=== PATIENT | female | born 1935 | race Caucasian/White ===

== ENCOUNTER 2021-03-29 13:58 | Inpatient (IN) ==
[2021-03-30] MEDS: Gabapentin 300 MG CAPSULE PO SCH ×2 (01:47→20:34)
[2021-03-30 07:07] LABS: Basophils # 0.1 K/mcL (0.0-0.2); Basophils % 0.5 %; Eosinophils # 0.4 K/mcL (0.0-0.6); Eosinophils % 3.8 %; Hematocrit 28.2 % (35.3-44.9); Hemoglobin 8.8 g/dL (11.5-15.4); Lymphocytes # 1.7 K/mcL (0.6-4.6); Lymphocytes % 18.7 %; Mean Corpuscular HGB Conc 31.2 g/dL (31.6-35.5); Mean Corpuscular Hemoglobin 27.8 pg (28.0-33.3); Mean Corpuscular Volume 89.2 fL (83.0-100.0); Mean Platelet Volume 9.4 fL (9.4-12.4); Monocytes # 0.8 K/mcL (0.0-1.3); Monocytes % 8.6 %; Neutrophils # 6.2 K/mcL (1.6-8.9); Nucleated Red Blood Cells 0.2 /100 WBC (0); Platelet Count 232 K/mcL (140-400); Red Blood Count 3.16 M/mcL (3.82-4.97); Red Cell Distribution Width 14.5 % (11.5-14.5); Segmented Neutrophils % 67.4 %; White Blood Count 9.2 K/mcL (4.3-11.1)
[2021-03-30 07:25] LABS: BUN/Creatinine Ratio 15 (6-26); Blood Urea Nitrogen 13 mg/dL (8-23); Calcium 8.3 mg/dL (8.6-10.3); Carbon Dioxide 30 mEq/L (23-29); Chloride 107 mEq/L (98-107); Glucose 95 mg/dL (70-105); Osmolality,Calculated 292 (280-300); Potassium 3.7 mEq/L (3.5-5.1); Sodium 141 mEq/L (136-145); eGFR For African Americans > 60 (> 60); eGFR For Non-African Americans > 60 (> 60)
[2021-03-30] MEDS ORDERED: POTASSIUM CHLORIDE 10 MEQ/100 ML IVPB SCH (09:00)
[2021-03-30] MEDS: Cholecalciferol (D-3) 1,000 UNIT (25MCG) TABLET PO SCH (09:47)
[2021-03-30] MEDS: Furosemide 20 MG TABLET PO SCH (09:48)
[2021-03-30] MEDS: Loratadine 10 MG TABLET PO SCH (09:48)
[2021-03-30] MEDS: amLODIPine 5 MG TABLET PO SCH (09:48)
[2021-03-30] MEDS: FLUTICASONE IH SCH (09:49)
[2021-03-30] MEDS: MEMANTINE HCL 21 MG PO SCH (09:49)
[2021-03-30] MEDS: VILANTEROL IH SCH (09:49)
[2021-03-30] MEDS: Albuterol 2.5 MG/3 ML NEBULIZER IH PRN (11:38)
[2021-03-30] MEDS: Budesonide/Formoterol 160/4.5 1 PUFF INH IH SCH ×2 (13:21→21:48)
[2021-03-31] MEDS: Furosemide 20 MG TABLET PO SCH (08:40)
[2021-03-31] MEDS: amLODIPine 5 MG TABLET PO SCH (08:40)
[2021-03-31] MEDS: Loratadine 10 MG TABLET PO SCH (08:40)
[2021-03-31] MEDS: Cholecalciferol (D-3) 1,000 UNIT (25MCG) TABLET PO SCH (08:41)
[2021-03-31] MEDS: MEMANTINE HCL 21 MG PO SCH (08:43)
[2021-03-31] MEDS: FLUTICASONE IH SCH (08:43)
[2021-03-31] MEDS: VILANTEROL IH SCH (08:43)
[2021-03-31] MEDS: Budesonide/Formoterol 160/4.5 1 PUFF INH IH SCH ×2 (11:00→20:38)
[2021-03-31] MEDS: Acetaminophen 325 MG TABLET PO PRN (17:03)
[2021-03-31] MEDS: Gabapentin 300 MG CAPSULE PO SCH (20:22)
[2021-04-01] MEDS: Budesonide/Formoterol 160/4.5 1 PUFF INH IH SCH ×2 (09:55→22:09)
[2021-04-01] MEDS: FLUTICASONE IH SCH (09:59)
[2021-04-01] MEDS: VILANTEROL IH SCH (09:59)
[2021-04-01 10:56] LABS: Basophils % 0.4 %; Eosinophils # 0.2 K/mcL (0.0-0.6); Eosinophils % 1.7 %; Hematocrit 32.9 % (35.3-44.9); Hemoglobin 9.5 g/dL (11.5-15.4); Immature Granulocytes % 0.6 % (0-4); Lymphocytes # 0.9 K/mcL (0.6-4.6); Lymphocytes % 9.8 %; Mean Corpuscular HGB Conc 28.9 g/dL (31.6-35.5); Mean Corpuscular Hemoglobin 27.5 pg (28.0-33.3); Mean Corpuscular Volume 95.4 fL (83.0-100.0); Mean Platelet Volume 9.1 fL (9.4-12.4); Monocytes # 0.8 K/mcL (0.0-1.3); Monocytes % 8.4 %; Neutrophils # 7.5 K/mcL (1.6-8.9); Platelet Count 184 K/mcL (140-400); Red Blood Count 3.45 M/mcL (3.82-4.97); Red Cell Distribution Width 15.9 % (11.5-14.5); Segmented Neutrophils % 79.1 %; White Blood Count 9.5 K/mcL (4.3-11.1)
[2021-04-01] MEDS: Furosemide 20 MG TABLET PO SCH (11:15)
[2021-04-01] MEDS: Loratadine 10 MG TABLET PO SCH (11:15)
[2021-04-01] MEDS: Cholecalciferol (D-3) 1,000 UNIT (25MCG) TABLET PO SCH (11:15)
[2021-04-01] MEDS: amLODIPine 5 MG TABLET PO SCH (11:15)
[2021-04-01 11:16] LABS: ABG Base Excess 3 mEq/L (-2 to 3); ABG HCO3 27 mEq/L (21-27); ABG Oxygen Saturation 96 % (95-98); ABG PCO2 41 mmHg (35-45); ABG PH 7.43 pH Units (7.32-7.45); ABG PO2 79 mmHg (85-104); ABG TCO2 29 mEq/L (20-26)
[2021-04-01] MEDS: MEMANTINE HCL 21 MG PO SCH (11:16)
[2021-04-01 11:28] LABS: Alanine Aminotransferase 17 Units/L (7-52); Albumin 3.7 g/dL (3.5-5.7); Albumin/Globulin Ratio 1.5 (1.1-2.2); Alkaline Phosphatase 77 Units/L (34-104); Aspartate Amino Transferase 23 Units/L (13-39); BUN/Creatinine Ratio 15 (6-26); Bilirubin,Total 0.6 mg/dL (0.3-1.0); Blood Urea Nitrogen 13 mg/dL (8-23); Calcium 8.6 mg/dL (8.6-10.3); Carbon Dioxide 26 mEq/L (23-29); Chloride 101 mEq/L (98-107); Globulin 2.5 g/dL (2.4-3.5); Glucose 100 mg/dL (70-105); Osmolality,Calculated 284 (280-300); Potassium 4.1 mEq/L (3.5-5.1); Sodium 137 mEq/L (136-145); Total Protein 6.2 g/dL (6.4-8.9); eGFR For African Americans > 60 (> 60); eGFR For Non-African Americans > 60 (> 60)
[2021-04-01] MEDS: Acetaminophen 325 MG TABLET PO PRN (12:46)
[2021-04-01] MEDS ORDERED: Ipratropium/Albuterol Neb 3 ML IH PRN (14:08)
[2021-04-01] MEDS ORDERED: Trolamine Salicylate/Aloe Vera 85 APPL/85 GM TUBE TP PRN (14:10)
[2021-04-01 18:38] LABS: Bilirubin,Urine Negative (Negative); Blood,Urine Trace-intact (Negative); Clarity,Urine Other (Clear); Color,Urine Light Yellow (Yellow); Glucose,Urine (UA) Normal (Normal); Ketones,Urine Negative (Negative); Leukocyte Esterase,Urine Trace (Negative); Nitrite,Urine Negative (Negative); PH,Urine 6.5 pH Units (5.0-8.0); Protein,Urine Negative (Neg-Trace); Specific Gravity,Urine 1.015 (1.010-1.025); Urobilinogen,Urine Normal (Normal)
[2021-04-01 18:44] LABS: Bacteria,Urine Few per hpf (None-Few); Squamous Epithelial Cell,Urine Few per hpf (None-Few)
[2021-04-01] MEDS: Gabapentin 300 MG CAPSULE PO SCH (20:07)
[2021-04-01] MEDS: Apixaban 5 MG TABLET PO SCH (20:08)
[2021-04-02] MEDS: Budesonide/Formoterol 160/4.5 1 PUFF INH IH SCH ×2 (09:03→22:49)
[2021-04-02] MEDS: Cholecalciferol (D-3) 1,000 UNIT (25MCG) TABLET PO SCH (09:49)
[2021-04-02] MEDS: Loratadine 10 MG TABLET PO SCH (09:50)
[2021-04-02] MEDS: MEMANTINE HCL 21 MG PO SCH (09:50)
[2021-04-02] MEDS: Furosemide 20 MG TABLET PO SCH (09:50)
[2021-04-02] MEDS: Apixaban 5 MG TABLET PO SCH ×2 (09:50→19:56)
[2021-04-02] MEDS: amLODIPine 5 MG TABLET PO SCH (09:50)
[2021-04-02] MEDS: Gabapentin 300 MG CAPSULE PO SCH (19:56)
[2021-04-02] MEDS: Acetaminophen 325 MG TABLET PO PRN (20:41)
[2021-04-03] MEDS: amLODIPine 5 MG TABLET PO SCH (09:43)
[2021-04-03] MEDS: Loratadine 10 MG TABLET PO SCH (09:43)
[2021-04-03] MEDS: Furosemide 20 MG TABLET PO SCH (09:43)
[2021-04-03] MEDS: Apixaban 5 MG TABLET PO SCH ×2 (09:43→20:21)
[2021-04-03] MEDS: Cholecalciferol (D-3) 1,000 UNIT (25MCG) TABLET PO SCH (09:43)
[2021-04-03] MEDS: Budesonide/Formoterol 160/4.5 1 PUFF INH IH SCH ×2 (09:54→20:08)
[2021-04-03] MEDS: Gabapentin 300 MG CAPSULE PO SCH (20:21)
[2021-04-03] MEDS: Acetaminophen 325 MG TABLET PO PRN (22:15)
[2021-04-04 07:53] LABS: Hematocrit 30.1 % (35.3-44.9); Hemoglobin 9.2 g/dL (11.5-15.4); Mean Corpuscular HGB Conc 30.6 g/dL (31.6-35.5); Mean Corpuscular Hemoglobin 27.5 pg (28.0-33.3); Mean Corpuscular Volume 90.1 fL (83.0-100.0); Mean Platelet Volume 9.7 fL (9.4-12.4); Platelet Count 234 K/mcL (140-400); Red Blood Count 3.34 M/mcL (3.82-4.97); Red Cell Distribution Width 15.4 % (11.5-14.5); White Blood Count 6.5 K/mcL (4.3-11.1)
[2021-04-04 08:02] LABS: BUN/Creatinine Ratio 22 (6-26); Blood Urea Nitrogen 21 mg/dL (8-23); Calcium 8.4 mg/dL (8.6-10.3); Carbon Dioxide 30 mEq/L (23-29); Chloride 103 mEq/L (98-107); Glucose 97 mg/dL (70-105); Osmolality,Calculated 291 (280-300); Potassium 3.7 mEq/L (3.5-5.1); Sodium 139 mEq/L (136-145); eGFR For African Americans > 60 (> 60); eGFR For Non-African Americans 55 (> 60)
[2021-04-04] MEDS: Apixaban 5 MG TABLET PO SCH ×2 (09:53→20:09)
[2021-04-04] MEDS: Loratadine 10 MG TABLET PO SCH (09:53)
[2021-04-04] MEDS: Furosemide 20 MG TABLET PO SCH (09:54)
[2021-04-04] MEDS: Cholecalciferol (D-3) 1,000 UNIT (25MCG) TABLET PO SCH (09:54)
[2021-04-04] MEDS: amLODIPine 5 MG TABLET PO SCH (09:54)
[2021-04-04] MEDS: Budesonide/Formoterol 160/4.5 1 PUFF INH IH SCH ×2 (10:50→21:20)
[2021-04-04] MEDS ORDERED: *HR* LORazepam 0.5 MG TABLET PO PRN (17:31)
[2021-04-04] MEDS: Gabapentin 300 MG CAPSULE PO SCH (20:09)
[2021-04-05] MEDS: MEMANTINE HCL 21 MG PO SCH (07:33)
[2021-04-05] MEDS: Apixaban 5 MG TABLET PO SCH ×2 (08:14→21:23)
[2021-04-05] MEDS: Cholecalciferol (D-3) 1,000 UNIT (25MCG) TABLET PO SCH (08:15)
[2021-04-05] MEDS: amLODIPine 5 MG TABLET PO SCH (08:15)
[2021-04-05] MEDS: Furosemide 20 MG TABLET PO SCH (08:15)
[2021-04-05] MEDS: Loratadine 10 MG TABLET PO SCH (08:15)
[2021-04-05] MEDS: Budesonide/Formoterol 160/4.5 1 PUFF INH IH SCH ×2 (11:04→20:58)
[2021-04-05] MEDS: Albuterol 2.5 MG/3 ML NEBULIZER IH PRN (21:06)
[2021-04-05] MEDS: Gabapentin 300 MG CAPSULE PO SCH (21:23)
[2021-04-06] MEDS: amLODIPine 5 MG TABLET PO SCH (08:56)
[2021-04-06] MEDS: Cholecalciferol (D-3) 1,000 UNIT (25MCG) TABLET PO SCH (08:56)
[2021-04-06] MEDS: Furosemide 20 MG TABLET PO SCH (08:56)
[2021-04-06] MEDS: Apixaban 5 MG TABLET PO SCH ×2 (08:57→20:30)
[2021-04-06] MEDS: Loratadine 10 MG TABLET PO SCH (08:57)
[2021-04-06] MEDS: Budesonide/Formoterol 160/4.5 1 PUFF INH IH SCH ×2 (09:51→22:10)
[2021-04-06] MEDS: Gabapentin 300 MG CAPSULE PO SCH (20:35)
[2021-04-07] MEDS: Cholecalciferol (D-3) 1,000 UNIT (25MCG) TABLET PO SCH (08:40)
[2021-04-07] MEDS: Loratadine 10 MG TABLET PO SCH (08:41)
[2021-04-07] MEDS: amLODIPine 5 MG TABLET PO SCH (08:41)
[2021-04-07] MEDS: Apixaban 5 MG TABLET PO SCH ×2 (08:41→20:09)
[2021-04-07] MEDS: Furosemide 20 MG TABLET PO SCH (08:42)
[2021-04-07] MEDS: Budesonide/Formoterol 160/4.5 1 PUFF INH IH SCH ×2 (09:37→21:14)
[2021-04-07] MEDS: Gabapentin 300 MG CAPSULE PO SCH (20:09)
[2021-04-08] MEDS: Loratadine 10 MG TABLET PO SCH (09:28)
[2021-04-08] MEDS: Apixaban 5 MG TABLET PO SCH ×2 (09:29→22:16)
[2021-04-08] MEDS: Furosemide 20 MG TABLET PO SCH (09:30)
[2021-04-08] MEDS: Cholecalciferol (D-3) 1,000 UNIT (25MCG) TABLET PO SCH (09:30)
[2021-04-08] MEDS: Budesonide/Formoterol 160/4.5 1 PUFF INH IH SCH ×2 (09:39→20:12)
[2021-04-08] MEDS: amLODIPine 5 MG TABLET PO SCH ×2 (10:55→12:01)
[2021-04-08] MEDS: Gabapentin 300 MG CAPSULE PO SCH (22:15)
[2021-04-08] MEDS: Acetaminophen 325 MG TABLET PO PRN (22:17)
[2021-04-09] MEDS: Furosemide 20 MG TABLET PO SCH (09:42)
[2021-04-09] MEDS: Loratadine 10 MG TABLET PO SCH (09:42)
[2021-04-09] MEDS: amLODIPine 5 MG TABLET PO SCH (09:43)
[2021-04-09] MEDS: Apixaban 5 MG TABLET PO SCH ×2 (09:43→20:52)
[2021-04-09] MEDS: Cholecalciferol (D-3) 1,000 UNIT (25MCG) TABLET PO SCH (09:43)
[2021-04-09] MEDS: Budesonide/Formoterol 160/4.5 1 PUFF INH IH SCH ×2 (09:54→22:00)
[2021-04-09] MEDS: Acetaminophen 325 MG TABLET PO PRN (11:01)
[2021-04-09] MEDS: Gabapentin 300 MG CAPSULE PO SCH (20:51)
[2021-04-10] MEDS: Loratadine 10 MG TABLET PO SCH (09:45)
[2021-04-10] MEDS: amLODIPine 5 MG TABLET PO SCH (09:45)
[2021-04-10] MEDS: Furosemide 20 MG TABLET PO SCH (09:45)
[2021-04-10] MEDS: Apixaban 5 MG TABLET PO SCH ×2 (09:45→21:06)
[2021-04-10] MEDS: Cholecalciferol (D-3) 1,000 UNIT (25MCG) TABLET PO SCH (09:45)
[2021-04-10] MEDS: Budesonide/Formoterol 160/4.5 1 PUFF INH IH SCH ×2 (10:17→21:44)
[2021-04-10] MEDS: Acetaminophen 325 MG TABLET PO PRN (18:30)
[2021-04-10] MEDS: Gabapentin 300 MG CAPSULE PO SCH (21:06)
[2021-04-11] MEDS: Furosemide 20 MG TABLET PO SCH (08:03)
[2021-04-11] MEDS: amLODIPine 5 MG TABLET PO SCH (08:03)
[2021-04-11] MEDS: Apixaban 5 MG TABLET PO SCH ×2 (08:03→20:23)
[2021-04-11] MEDS: Cholecalciferol (D-3) 1,000 UNIT (25MCG) TABLET PO SCH (08:03)
[2021-04-11] MEDS: Loratadine 10 MG TABLET PO SCH (08:03)
[2021-04-11] MEDS: Budesonide/Formoterol 160/4.5 1 PUFF INH IH SCH ×2 (09:54→21:27)
[2021-04-11 11:36] LABS: Hematocrit 33.4 % (35.3-44.9); Hemoglobin 10.1 g/dL (11.5-15.4); Mean Corpuscular HGB Conc 30.2 g/dL (31.6-35.5); Mean Corpuscular Hemoglobin 27.4 pg (28.0-33.3); Mean Corpuscular Volume 90.5 fL (83.0-100.0); Mean Platelet Volume 8.7 fL (9.4-12.4); Platelet Count 487 K/mcL (140-400); Red Blood Count 3.69 M/mcL (3.82-4.97); Red Cell Distribution Width 15.9 % (11.5-14.5); White Blood Count 8.7 K/mcL (4.3-11.1)
[2021-04-11 12:15] LABS: BUN/Creatinine Ratio 16 (6-26); Blood Urea Nitrogen 16 mg/dL (8-23); Calcium 8.8 mg/dL (8.6-10.3); Carbon Dioxide 29 mEq/L (23-29); Chloride 102 mEq/L (98-107); Glucose 82 mg/dL (70-105); Osmolality,Calculated 288 (280-300); Sodium 139 mEq/L (136-145); eGFR For African Americans > 60 (> 60); eGFR For Non-African Americans 53 (> 60)
[2021-04-11] MEDS: Tetrahydrozoline 15 ML BOTTLE RIGHT EYE PRN ×2 (13:24→20:23)
[2021-04-11] MEDS: Gabapentin 300 MG CAPSULE PO SCH (20:22)
[2021-04-12] MEDS: Budesonide/Formoterol 160/4.5 1 PUFF INH IH SCH ×2 (09:58→22:17)
[2021-04-12] MEDS: Cholecalciferol (D-3) 1,000 UNIT (25MCG) TABLET PO SCH (11:29)
[2021-04-12] MEDS: Apixaban 5 MG TABLET PO SCH ×2 (11:30→20:47)
[2021-04-12] MEDS: amLODIPine 5 MG TABLET PO SCH (11:30)
[2021-04-12] MEDS: Loratadine 10 MG TABLET PO SCH (11:30)
[2021-04-12] MEDS: Furosemide 20 MG TABLET PO SCH (11:30)
[2021-04-12] MEDS: Tetrahydrozoline 15 ML BOTTLE RIGHT EYE PRN ×2 (11:34→20:47)
[2021-04-12 19:44] VITALS: TEMP 98
[2021-04-12] MEDS: Gabapentin 300 MG CAPSULE PO SCH (20:47)
[2021-04-12] MEDS: Acetaminophen 325 MG TABLET PO PRN (20:49)
[2021-04-13 07:47] VITALS: BP 120/65; PULSE 61; RESP 18
[2021-04-13] MEDS: Furosemide 20 MG TABLET PO SCH (08:29)
[2021-04-13] MEDS: Apixaban 5 MG TABLET PO SCH (08:29)
[2021-04-13] MEDS: Loratadine 10 MG TABLET PO SCH (08:29)
[2021-04-13] MEDS: amLODIPine 5 MG TABLET PO SCH (08:29)
[2021-04-13] MEDS: Cholecalciferol (D-3) 1,000 UNIT (25MCG) TABLET PO SCH (08:29)
[2021-04-13] MEDS: Tetrahydrozoline 15 ML BOTTLE RIGHT EYE PRN (08:33)
[2021-04-13] MEDS: Budesonide/Formoterol 160/4.5 1 PUFF INH IH SCH (09:30)
[2021-04-13 09:34] VITALS: O2SAT 96
== END 2021-04-13 13:42 | disposition home or self-care (01) | DRG 948 ==
LOC: INPPIK 20:42
PROVIDERS: ADMIT Internal Medicine; ATTEND Internal Medicine